=== PATIENT | male | born 1965 | race African-American/Black ===

== ENCOUNTER 2019-12-29 18:32 | Emergency (ER) | payer MEDICAID ==
[~2019-12-29] VITALS: Ht 180.3 cm; Wt 91.0 kg
[2019-12-29] MEDS ORDERED: KETOROLAC 15MG/ML VIAL IV ONE (20:15)
[2019-12-29 20:25] LABS: BASOPHILS % 0.8 % (0.0-2.0); EOSINOPHILS % 2.1 % (0.0-5.0); HEMATOCRIT. 42.6 % (42.0-52.0); HEMOGLOBIN. 14.5 g/dL (14.0-18.0); LYMPHOCYTES % 29.5 % (20.0-50.0); MEAN CORPUSCULAR HEMOGLOBIN 31.5 pg (28.0-32.0); MEAN CORPUSCULAR VOLUME 92.2 fL (80.0-94.0); MEAN PLATELET VOLUME 7.1 fl (7.4-10.4); NEUTROPHILS % 57.6 % (40.0-76.0); PLATELET 247 x1000/uL (130-400); RED BLOOD CELL COUNT 4.62 mill/uL (4.7-6.1); RED CELL DISTRIBUTION WIDTH 14.8 % (11.6-14.6)
[2019-12-29 20:31] LABS: CHLORIDE 108 mEq/L (98-107)
[2019-12-30] MEDS ORDERED: IOHEXOL-300 100 ML BOTTLE ONE ×2 (00:43→01:25)
[2019-12-30 01:13] VITALS: BP 140/99
== END 2019-12-30 01:46 | disposition home or self-care (01) ==
LOC: ER 18:32
DX: K43.9 Ventral hernia without obstruction or gangrene (principal); J45.909 Unspecified asthma, uncomplicated
CPT/HCPCS: 36415; 74177; 80053; 83690; 85025; 96374; 99285; J1885; Q9967